=== PATIENT | male | born 1990 | race Caucasian/White ===

== ENCOUNTER 2018-05-29 20:32 | Emergency (ER) | payer OTHER ==
[2018-05-29 20:52] VITALS: BP 127/84; PULSE 74; RESP 18; TEMP 98.2
--- NOTE | 2018-05-29 21:56 | ED ---
General Adult HPI - General Chief complaint: Skin/Abscess/Foreign Body Stated complaint: FB in finger Time Seen by Provider: 05/29/18 20:54 Source: patient, RN notes reviewed Mode of arrival: ambulatory Limitations: no limitations - History of Present Illness Initial comments: 27-year-old male presents to the emergency department for a chief complaint of foreign body in right index finger. Patient states he was holding a carbon fiber sadie today when a piece went into his finger about 7 hours ago. Patient states he tried to go to urgent care but they were not successful in removing the splinter. Patient denies any spreading or streaking redness. Patient denies any fevers or chills. Patient did not sustain any other injuries.Patient has no other complaints at this time including shortness of breath, chest pain, abdominal pain, nausea or vomiting, headache, or visual changes. - Related Data Home Medications Medication Instructions Recorded Confirmed Naproxen 250 mg PO Q6H PRN 05/29/18 05/29/18 Allergies Allergy/AdvReac Type Severity Reaction Status Date / Time codeine AdvReac Nausea & Verified 05/29/18 21:53 Vomiting Review of Systems ROS Statement: Those systems with pertinent positive or pertinent negative responses have been documented in the HPI. ROS Other: All systems not noted in ROS Statement are negative. Past Medical History Past Medical History: No Reported History History of Any Multi-Drug Resistant Organisms: None Reported Past Surgical History: Appendectomy, Orthopedic Surgery Additional Past Surgical History / Comment(s): shoulder Past Psychological History: No Psychological Hx Reported Smoking Status: Never smoker Past Alcohol Use History: Occasional Past Drug Use History: None Reported General Exam Limitations: no limitations General appearance: alert, in no apparent distress Head exam: Present: atraumatic, normocephalic, normal inspection Eye exam: Present: normal appearance. Absent: scleral icterus, conjunctival injection ENT exam: Present: normal exam, mucous membranes moist Neck exam: Present: normal inspection, full ROM. Absent: tenderness, meningismus, lymphadenopathy Respiratory exam: Present: normal lung sounds bilaterally. Absent: respiratory distress, wheezes, rales, rhonchi, stridor Cardiovascular Exam: Present: regular rate, normal rhythm, normal heart sounds. Absent: systolic murmur, diastolic murmur, rubs, gallop, clicks Extremities exam: Present: full ROM (Full range of motion of the right index finger.), tenderness (Tenderness over the foreign body.), normal capillary refill (cap refill <2 seconds.), other (5 mm linear black FB in palmar proximal phalanx. No spreading or streaking redness. No signs of infection.) Neurological exam: Present: alert, oriented X3, CN II-XII intact Psychiatric exam: Present: normal affect, normal mood Skin exam: Present: warm, dry, intact, normal color. Absent: rash Course Vital Signs 05/29/18 20:47 Temperature 98.2 F Pulse Rate 74 Respiratory 18 Rate Blood Pressure 127/84 O2 Sat by Pulse 100 Oximetry Medical Decision Making - Medical Decision Making 27-year-old male presents to the emergency department for a chief complaint of carbon fiber foreign body in the proximal phalanx right index finger 7 hours. Patient did attempt to have this removed at urgent care which was a mucosal. Patient refuses x-ray as he states it will not show up on x-ray. Area was cleaned with alcohol. It was numbed with lidocaine. It was then removed with an 18-gauge needle without any complications or difficulty. Antibiotic ointment was applied and it was bandaged. He will watch for signs of infection and follow up with primary care in 1-2 days. Tetanus is up-to-date as of 2 years ago. Disposition Clinical Impression: Foreign body (FB) in soft tissue Disposition: HOME SELF-CARE Condition: Good Instructions: Soft Tissue Foreign Body (ED) Additional Instructions: Please monitor for spreading redness or streaking redness of the finger. Please keep the area clean and dry. Return to the emergency department if you notice any worsening symptoms or signs of infection. Otherwise follow-up with primary care in 1-2 days. Is patient prescribed a controlled substance at d/c from ED?: No Referrals: Román Sainz MD [Primary Care Provider] - 1-2 days Time of Disposition: 21:57
== END 2018-05-29 22:08 | disposition home or self-care (01) ==
LOC: EC 20:32
DX: S60.450A Superficial foreign body of right index finger, initial encounter (principal); Z88.5 Allergy status to narcotic agent; W45.8XXA Other foreign body or object entering through skin, initial encounter
CPT/HCPCS: 10120; 99283

== ENCOUNTER 2019-05-23 11:14 | Emergency (ER) | payer OTHER ==
[2019-05-23 11:21] VITALS: RESP 18
[2019-05-23] MEDS ORDERED: KETOROLAC 30 MG/ML 1 ML VIAL IVP STA (11:55)
[2019-05-23] MEDS ORDERED: SODIUM CHLORIDE 0.9% 1,000 ML IV STA (11:55)
--- NOTE | 2019-05-23 11:58 | ED ---
General Adult HPI - General Chief complaint: Back Pain/Injury Stated complaint: Back Pain Time Seen by Provider: 05/23/19 11:29 Source: patient, RN notes reviewed Mode of arrival: ambulatory Limitations: no limitations - History of Present Illness Initial comments: 28-year-old male without any significant past medical history presents to the emergency department for a chief complaint of left flank pain. States this has been ongoing for about 3 days. States it is now radiating into his groin. Denies any testicular pain. Denies any abdominal pain. Patient does admit to a small amount of decreased urinary output but states he is still urinating. Denies dysuria. Denies fevers or chills. Denies nausea vomiting diarrhea.Patient has no other complaints at this time including shortness of breath, chest pain, abdominal pain, nausea or vomiting, headache, or visual changes. - Related Data Home Medications Medication Instructions Recorded Confirmed Naproxen 250 mg PO Q6H PRN 05/29/18 05/29/18 Previous Rx's Medication Instructions Recorded Ketorolac [Toradol] 10 mg PO TID #12 tab 05/23/19 Allergies Allergy/AdvReac Type Severity Reaction Status Date / Time codeine AdvReac Nausea & Verified 05/23/19 11:17 Vomiting Review of Systems ROS Statement: Those systems with pertinent positive or pertinent negative responses have been documented in the HPI. ROS Other: All systems not noted in ROS Statement are negative. Past Medical History Past Medical History: No Reported History History of Any Multi-Drug Resistant Organisms: None Reported Past Surgical History: Appendectomy, Hernia Repair, Orthopedic Surgery Additional Past Surgical History / Comment(s): shoulder Past Psychological History: No Psychological Hx Reported Smoking Status: Never smoker Past Alcohol Use History: Occasional Past Drug Use History: None Reported General Exam Limitations: no limitations General appearance: alert, in no apparent distress Head exam: Present: atraumatic, normocephalic, normal inspection Eye exam: Present: normal appearance, PERRL, EOMI. Absent: scleral icterus, conjunctival injection, periorbital swelling ENT exam: Present: normal exam, mucous membranes moist Neck exam: Present: normal inspection, full ROM. Absent: tenderness, meningismus, lymphadenopathy Respiratory exam: Present: normal lung sounds bilaterally. Absent: respiratory distress, wheezes, rales, rhonchi, stridor Cardiovascular Exam: Present: regular rate, normal rhythm, normal heart sounds. Absent: systolic murmur, diastolic murmur, rubs, gallop, clicks GI/Abdominal exam: Present: soft, normal bowel sounds. Absent: distended, te nderness, guarding, rebound, rigid Back exam: Absent: CVA tenderness (R), CVA tenderness (L) Neurological exam: Present: alert Psychiatric exam: Present: normal affect, normal mood Course Vital Signs 05/23/19 11:17 Temperature 97.4 F L Pulse Rate 85 Respiratory 18 Rate Blood Pressure 153/92 O2 Sat by Pulse 100 Oximetry Medical Decision Making - Medical Decision Making 28-year-old male without any significant past medical history presents for a chief complaint of left flank pain. This is an ongoing for about 3 days. Reading into his groin but denies any testicular or abdominal pain. Denies dysuria or fevers or chills. States urine stream is somewhat shorter than normal. It is a stable presentation. Mild hypertension. Patient will follow up for this. On exam no abdominal tenderness. No CVA tenderness. CBC and CMP are unremarkable. Urine is negative. CT abdomen and pelvis without contrast shows possible bladder wall thickening that could represent chronic hypertrophy or cystitis however urinalysis negative. There is also mild prostate gland enlargement of 4.5 cm. Patient will follow up with urology for this, referral given. There are also findings consistent with mesenteric adenitis to include nonenlarged and borderline enlarged mesenteric lymph nodes. This could be the c ause of patient's left flank pain radiating to the groin. There is also a small 9 mm cystic stretcher in the inferior right femoral head. Patient does not have pain in this area. Patient will follow up with primary care for this. At this time patient was given Toradol feeling much better. He will be discharged home with Toradol. He will return if he has any worsening symptoms. - Lab Data Result diagrams: 05/23/19 12:05 05/23/19 12:05 Lab Results 05/23/19 05/23/19 05/23/19 Range/Units 12:05 12:05 12:05 WBC 6.0 (3.8-10.6) k/uL RBC 5.30 (4.30-5.90) m/uL Hgb 15.5 (13.0-17.5) gm/dL Hct 45.6 (39.0-53.0) % MCV 86.0 (80.0-100.0) fL MCH 29.3 (25.0-35.0) pg MCHC 34.0 (31.0-37.0) g/dL RDW 14.7 (11.5-15.5) % Plt Count 315 (150-450) k/uL Neutrophils % 68 % Lymphocytes % 22 % Monocytes % 6 % Eosinophils % 2 % Basophils % 1 % Neutrophils # 4.1 (1.3-7.7) k/uL Lymphocytes # 1.3 (1.0-4.8) k/uL Monocytes # 0.4 (0-1.0) k/uL Eosinophils # 0.1 (0-0.7) k/uL Basophils # 0.0 (0-0.2) k/uL Sodium 141 (137-145) mmol/L Potassium 4.3 (3.5-5.1) mmol/L Chloride 103 (98-107) mmol/L Carbon Dioxide 29 (22-30) mmol/L Anion Gap 9 mmol/L BUN 16 (9-20) mg/dL Creatinine 0.88 (0.66-1.25) mg/dL Est GFR (CKD-EPI)AfAm >90 (>60 ml/min/1.73 sqM) Est GFR (CKD-EPI)NonAf >90 (>60 ml/min/1.73 sqM) Glucose 91 (74-99) mg/dL Calcium 9.7 (8.4-10.2) mg/dL Total Bilirubin 0.6 (0.2-1.3) mg/dL AST 25 (17-59) U/L ALT 24 (21-72) U/L Alkaline Phosphatase 55 (38-126) U/L Total Protein 8.0 (6.3-8.2) g/dL Albumin 4.8 (3.5-5.0) g/dL Amylase 74 (30-110) U/L Lipase 161 (23-300) U/L Urine Color Yellow Urine Appearance Clear (Clear) Urine pH 6.5 (5.0-8.0) Ur Specific [place] 1.018 (1.001-1.035) Urine Protein Negative (Negative) Urine Glucose (UA) Negative (Negative) Urine Ketones Negative (Negative) Urine Blood Negative (Negative) Urine Nitrite Negative (Negative) Urine Bilirubin Negative (Negative) Urine Urobilinogen <2.0 (<2.0) mg/dL Ur Leukocyte Esterase Negative (Negative) Disposition Clinical Impression: Flank pain, Bone cyst of femur, Hypertrophy of bladder Disposition: HOME SELF-CARE Condition: Good Instructions (If sedation given, give patient instructions): Acute Low Back Pain (ED) Additional Instructions: Please take Toradol as directed for pain. Please follow-up with urology for bladder wall thickening as well as enlarged prostate. Please follow-up with primary care regarding this flank pain and CT findings. If pain is worsening instead of improving return to the emergency department. Return if you've any other worsening symptoms. Prescriptions: Ketorolac [Toradol] 10 mg PO TID #12 tab Is patient prescribed a controlled substance at d/c from ED?: No Referrals: Román Sainz MD [Primary Care Provider] - 1-2 days Billy Allan MD [STAFF PHYSICIAN] - 1-2 days Time of Disposition: 13:39
[2019-05-23 12:23] LABS: Appearance,Urine Clear (Clear); Basophils % (A) 1 %; Bilirubin,Urine Negative (Negative); Blood,Urine Negative (Negative); Color,Urine Yellow; Eosinophils # (A) 0.1 k/uL (0-0.7); Eosinophils % (A) 2 %; Glucose,Urine (UA) Negative (Negative); HCT 45.6 % (39.0-53.0); HGB 15.5 gm/dL (13.0-17.5); Ketones,Urine Negative (Negative); Leukocyte Esterase,Urine Negative (Negative); Lymphocytes # (A) 1.3 k/uL (1.0-4.8); Lymphocytes % (A) 22 %; MCH 29.3 pg (25.0-35.0); Mean Platelet Volume 6.2; Monocytes # (A) 0.4 k/uL (0-1.0); Monocytes % (A) 6 %; Neutrophils # (A) 4.1 k/uL (1.3-7.7); Neutrophils % (A) 68 %; Nitrite,Urine Negative (Negative); PH, Urine 6.5 (5.0-8.0); Platelet Count 315 k/uL (150-450); Protein,Urine Negative (Negative); RDW 14.7 % (11.5-15.5); Specific Gravity,Urine 1.018 (1.001-1.035); Urobilinogen,Urine <2.0 mg/dL (<2.0)
[2019-05-23 12:41] LABS: ALT 24 U/L (21-72); AST 25 U/L (17-59); African American GFR (CKD) >90 (>60 ml/min/1.73 sqM); Albumin 4.8 g/dL (3.5-5.0); Alkaline Phosphatase 55 U/L (38-126); Amylase 74 U/L (30-110); Anion Gap 9 mmol/L; Blood Urea Nitrogen 16 mg/dL (9-20); Calcium 9.7 mg/dL (8.4-10.2); Carbon Dioxide 29 mmol/L (22-30); Chloride 103 mmol/L (98-107); Glucose 91 mg/dL (74-99); Potassium 4.3 mmol/L (3.5-5.1); Sodium 141 mmol/L (137-145); Total Bilirubin 0.6 mg/dL (0.2-1.3)
--- NOTE | 2019-05-23 13:06 | CT ---
EXAMINATION TYPE: CT abdomen pelvis wo con DATE OF EXAM: 05/23/2019 COMPARISON: None HISTORY: 28-year-old male with abdominal pain CT DLP: 487.8 mGycm. Automated exposure control for dose reduction was used. TECHNIQUE: Contiguous axial scanning of the abdomen and pelvis without IV contrast. Coronal and sagit patti reconstructions performed. FINDINGS: Heart normal size without pericardial effusion. Lung bases clear without pleural effusion. Noncontrast appearance of the liver, gallbladder, adrenal glands, and spleen show no gross abnormalit y. Some concentrated renal salts noted in the region of the medullary pyramids, possible punctate 1 mm c alcification in the right midpole. Tiny calcified granulomas in the spleen. No dilated small bowel, free fluid, or free air. Scattered nonenlarged borderline sized mesenteric lymph nodes, greatest within the right lower quadra nt measuring up to 8 mm. Surgical material right lower quadrant relating to prior appendectomy. Mild overall stool burden without perisplenic inflammatory change. Mild circumferential bladder wall thickening. Prostate gland measures 4.5 cm wide. Bones: There is a small cystic area within the inferior aspect of the right femoral head with interna l calcification uncertain clinical significance. No osseous destructive process. IMPRESSION: 1. Possible bladder wall thickening could represent chronic bladder wall hypertrophy or cystitis. Cl inically correlate. 2. Prostate gland mildly enlarged for patient's age of 4.5 cm wide. 3. Numerous scattered nonenlarged and borderline enlarged mesenteric lymph nodes, greatest in the ri ght lower quadrant measuring up to 8 mm. Findings are nonspecific but may be seen with mesenteric minnie nitis. Patient is status post appendectomy. 4. Small 9 mm cystic structure inferior right femoral head of uncertain clinical significance and e tiology in the absence of pain here. If there is focal pain, osteoid osteoma would be a differential consideration.
[2019-05-23 14:07] VITALS: BP 134/80; PULSE 78; TEMP 97.8
== END 2019-05-23 14:04 | disposition home or self-care (01) ==
LOC: EC 11:14
DX: N32.89 Other specified disorders of bladder (principal); M85.651 Other cyst of bone, right thigh; R10.32 Left lower quadrant pain; N40.1 Benign prostatic hyperplasia with lower urinary tract symptoms; R39.12 Poor urinary stream; I10 Essential (primary) hypertension; R59.0 Localized enlarged lymph nodes; Z88.5 Allergy status to narcotic agent; Z90.49 Acquired absence of other specified parts of digestive tract
CPT/HCPCS: 36415; 80053; 82150; 83690; 85025; 81003; 74176; 99284; 96374; 96361; J1885

== ENCOUNTER → 2021-01-27 | Outpatient (CLI) | payer MEDICAID ==
--- NOTE | 2021-01-27 08:43 | US ---
EXAMINATION TYPE: US scrotum with doppler. Grayscale and color Doppler Duplex imaging performed of t he scrotum. DATE OF EXAM: 01/27/2021 COMPARISON: NONE CLINICAL HISTORY: Evaluate nodule. palpable on th left EXAM MEASUREMENTS: TESTICLES: Right Testicle: 5.2 x 3.3 x 2.5 cm Left Testicle: 5.2 x 3.6 x 2.5 cm EPIDIDYMIS HEAD: Right Epididymis: 1.1 cm, cyst seen 0.7 x 0.4cm Left Epididymis: 1.2 cm, cyst seen with internal debris 0.8 x 0.9 x 0.7cm - site of palp Doppler performed to assess for testicular vascularity; good bilateral color flow and waveforms are s een. Presence of hydroceles: mild seen laterally with internal debris Presence of varicoceles: no IMPRESSION: Small to tiny epididymal cysts including at the site of palpable abnormality left scrotum . No concerning focal intratesticular mass.
== END | disposition home or self-care (01) ==
LOC: RADUSWWP 07:11
PROVIDERS: ATTEND Emergency Medicine
DX: N43.3 Hydrocele, unspecified (principal)
CPT/HCPCS: 76870; 93975

== ENCOUNTER → 2021-09-19 | Outpatient (CLI) | payer MEDICAID ==
--- NOTE | 2021-09-19 14:25 | CT ---
EXAMINATION TYPE: CT soft tissue neck w con DATE OF EXAM: 09/19/2021 COMPARISON: None HISTORY: Left sided neck mass/lump. CT DLP: 680 mGycm CONTRAST: CT scan of the neck is performed with IV Contrast, patient injected with 100ml mL of Isovue 300. Contrast enhanced CT of the neck was performed from the skull base through the lung apices. Marker is placed at the site of clinical concern left neck which correlates to the sternocleidomastoi d musculature. No evidence for underlying nodule or mass. AIRWAY: The supraglottic, glottic, and subglottic portions of the airway appear patent and free of mass. SALIVARY GLANDS: The submandibular and parotid glands are free of mass or inflammatory process. THYROID GLAND: No nodules or masses seen. LYMPH NODES: No adenopathy seen greater than 1cm. LUNG APICES: No nodule or mass is seen. OTHER: Vascular structures are patent. No significant degenerative change of the cervical spine. N o abscess seen. IMPRESSION: Marker is placed at the site of clinical concern left neck which correlates to the sternocleidomastoi d musculature. No evidence for underlying nodule or mass. No adenopathy.
== END | disposition home or self-care (01) ==
LOC: RADCTMAIN 13:56
PROVIDERS: ATTEND Otolaryngology
DX: R59.0 Localized enlarged lymph nodes (principal); R09.89 Other specified symptoms and signs involving the circulatory and respiratory systems
CPT/HCPCS: 70491; Q9967

== ENCOUNTER → 2021-12-05 | Outpatient (CLI) | payer MEDICAID ==
[2021-12-05 15:23] LABS: LDL Cholesterol,Calculated 108.2 mg/dL (0.0-131.0)
== END | disposition home or self-care (01) ==
LOC: LABWHC1 08:01
PROVIDERS: ATTEND Nurse Practitioner Adult Health
DX: E04.1 Nontoxic single thyroid nodule (principal); E78.5 Hyperlipidemia, unspecified
CPT/HCPCS: 36415; 80061; 84439; 84443; 86376

== ENCOUNTER → 2021-12-05 | Outpatient (CLI) | payer MEDICAID ==
--- NOTE | 2021-12-05 09:57 | US ---
EXAMINATION TYPE: US thyroid st tissue head/neck DATE OF EXAM: 12/05/2021 COMPARISON: None CLINICAL HISTORY: 31-year-old male E04.1 THYROID NODULE. Suspected left thyroid nodule. TECHNIQUE: Multiple sonographic images of the thyroid gland are obtained. FINDINGS: GLAND SIZE: Right Lobe: 6.1 x 1.8 x 2.1 cm Overall Parenchyma: homogenous Left Lobe: 5.5 x 1.5 x 2.0 cm Overall Parenchyma: homogeneous Isthmus Thickness: 0.4 cm NODULES RIGHT: # of nodules measured on right: 0 LEFT: # of nodules measured on left: 0 ISTHMUS: # of nodules measured in the isthmus: 0 [employer] notes: Bilateral neck scanned, no evidence of lymphadenopathy. IMPRESSION: Mild thyromegaly may reflect goiter. Clinically correlate. No discrete nodules.
== END | disposition home or self-care (01) ==
LOC: RADUSWWP 07:46
PROVIDERS: ATTEND Otolaryngology
DX: E04.1 Nontoxic single thyroid nodule (principal)
CPT/HCPCS: 76536

== ENCOUNTER 2022-01-02 11:16 | Emergency (ER) | payer MEDICAID ==
[2022-01-02 11:31] VITALS: RESP 18
[2022-01-02] MEDS ORDERED: SODIUM CHLORIDE 0.9% 1,000 ML IV STA (11:52)
[2022-01-02] MEDS ORDERED: IBUPROFEN 600 MG TAB PO STA (11:52)
[2022-01-02] MEDS ORDERED: SODIUM CHLORIDE 0.9% 500 ML 500 ML IV STA (11:52)
[2022-01-02 12:01] LABS: Basophils % (A) 0 %; Eosinophils # (A) 0.1 k/uL (0-0.7); Eosinophils % (A) 1 %; HCT 47.2 % (39.0-53.0); Lymphocytes # (A) 1.1 k/uL (1.0-4.8); Lymphocytes % (A) 15 %; MCH 29.1 pg (25.0-35.0); MCHC 33.8 g/dL (31.0-37.0); MCV 86.1 fL (80.0-100.0); Mean Platelet Volume 6.3; Monocytes # (A) 0.4 k/uL (0-1.0); Monocytes % (A) 6 %; Neutrophils # (A) 5.1 k/uL (1.3-7.7); Neutrophils % (A) 73 %; Platelet Count 373 k/uL (150-450); RBC 5.48 m/uL (4.30-5.90); RDW 12.3 % (11.5-15.5); WBC 7.1 k/uL (3.8-10.6)
[2022-01-02 12:19] LABS: ALT 29 U/L (4-49); AST 31 U/L (17-59); African American GFR (CKD) >90 (>60 ml/min/1.73 sqM); Albumin 4.8 g/dL (3.5-5.0); Alkaline Phosphatase 57 U/L (38-126); Anion Gap 10 mmol/L; Blood Urea Nitrogen 13 mg/dL (9-20); Calcium 9.3 mg/dL (8.4-10.2); Carbon Dioxide 28 mmol/L (22-30); Chloride 100 mmol/L (98-107); Glucose 94 mg/dL (74-99); Non-African American GFR(CKD) >90 (>60 ml/min/1.73 sqM); Potassium 4.4 mmol/L (3.5-5.1); Sodium 138 mmol/L (137-145); Total Bilirubin 0.9 mg/dL (0.2-1.3); Total Protein 8.2 g/dL (6.3-8.2)
--- NOTE | 2022-01-02 12:28 | XR ---
EXAMINATION TYPE: XR chest 2V DATE OF EXAM: 01/02/2022 COMPARISON: None HISTORY: 31-year-old male coughing fever for 10 days TECHNIQUE: PA and lateral views FINDINGS: Heart normal size. Aorta and pulmonary vasculature within normal limits. Some strandy atelectasis at the left base. No consolidation or pleural effusion seen. IMPRESSION: No focal infiltrate identified.
--- NOTE | 2022-01-02 13:02 | ED ---
Nausea/Vomiting/Diarrhea HPI - General Chief complaint: Nausea/Vomiting/Diarrhea Stated complaint: Nausea, Diarrhea, Fever, Dehydration Time Seen by Provider: 01/02/22 11:38 Source: patient, family, RN notes reviewed, old records reviewed Mode of arrival: ambulatory Limitations: no limitations - History of Present Illness Initial comments: Patient is a 29-year-old male with history of hyperlipidemia, presenting to the emergency Department with complaints of a intermittent fever and sore throat over the past 10 days. He's had a mild cough as well. Patient had an episode of vomiting a few days ago. Over the past 3 days he's had frequent bouts of diarrhea. Patient states he is starting to feel really dehydrated. His appetite has been low, he does not feel like stable drink enough water. Patient has not been evaluated for his fever cough prior to his arrival today. He denies any abdominal pains, no chest pains. He does feel some mild short of breath. Patient is vaccinated for Covid. Patient's states that she had a small respiratory virus about 2 weeks ago. She has since improved. Patient denies any dizziness. He has no further complaints. - Related Data Home Medications Medication Instructions Recorded Confirmed Cholecalciferol (Vitamin D3) 75 mcg PO DAILY 01/02/22 01/02/22 [Vitamin D3 (3000 Iu)] Loperamide HCl [Imodium A-D] 2 - 4 mg PO QID PRN 01/02/22 01/02/22 Rosuvastatin Calcium 10 mg PO W/SUPPER 01/02/22 01/02/22 Allergies Allergy/AdvReac Type Severity Reaction Status Date / Time codeine AdvReac Nausea & Verified 01/02/22 12:46 Vomiting Review of Systems ROS Statement: Those systems with pertinent positive or pertinent negative responses have been documented in the HPI. ROS Other: All systems not noted in ROS Statement are negative. Past Medical History Past Medical History: No Reported History History of Any Multi-Drug Resistant Organisms: None Reported Past Surgical History: Appendectomy, Hernia Repair, Orthopedic Surgery Additional Past Surgical History / Comment(s): shoulder Past Psychological History: No Psychological Hx Reported Smoking Status: Never smoker Past Alcohol Use History: Occasional Past Drug Use History: None Reported General Exam - General Exam Comments Initial Comments: GENERAL: Patient is well-developed and well-nourished. Patient is nontoxic and in no acute distress. HEAD: Atraumatic, normocephalic. EYES: Pupils equal round and reactive to light, extraocular movements intact, sclera anicteric, conjunctiva are normal. Eyelids were unremarkable. ENT: TMs normal, nares patent, oropharynx clear without exudates. Moist mucous membranes. NECK: Normal range of motion, supple without lymphadenopathy or JVD. LUNGS: Unlabored respirations. Breath sounds clear to auscultation bilaterally and equal. No wheezes rales or rhonchi. HEART: Regular rate and rhythm without murmurs, rubs or gallops. ABDOMEN: Soft, nontender, normoactive bowel sounds. No guarding, no rebound. No masses appreciated. MUSCULOSKELETAL: Normal extremities with adequate strength and normal range of motion, no pitting or edema. No clubbing or cyanosis. NEUROLOGICAL: Patient is alert and oriented x 3. Normal speech, normal gait. PSYCH: Normal mood, normal affect. SKIN: Warm, Dry, normal turgor, no rashes or lesions noted. Course Vital Signs 01/02/22 11:26 Temperature 100.1 F H Pulse Rate 98 Respiratory 18 Rate Blood Pressure 129/83 O2 Sat by Pulse 99 Oximetry Medical Decision Making - Medical Decision Making Patient is a 31-year-old male here with intermittent fever, cough and viral-type symptoms for the past 10 days. He had one day of vomiting, he has had diarrhea for the last 3 days. Did arrive mildly febrile at 100, rest of vitals normal. His exam was unremarkable. Chest x-ray shows no focal infiltrate. Blood work is unremarkable, covid and influenza are negative. Urine shows no evidence of bacteria, 1+ ketones. Patient received a liter and half of fluids, Motrin for his discomfort. He is resting comfortably, no complaints. Studies were discussed with the patient. This is most likely viral in nature. Recommend continuing with Tylenol and ibuprofen as needed trial of Imodium for the diarrhea, increase fluids. They can follow up with primary care as needed. Return parameters were discussed. Patient agreeable. Case discussed Dr. Gruber. - Lab Data Result diagrams: 01/02/22 11:54 01/02/22 11:54 Lab Results 01/02/22 01/02/22 01/02/22 Range/Units 11:54 11:54 11:54 WBC 7.1 (3.8-10.6) k/uL RBC 5.48 (4.30-5.90) m/uL Hgb 16.0 (13.0-17.5) gm/dL Hct 47.2 (39.0-53.0) % MCV 86.1 (80.0-100.0) fL MCH 29.1 (25.0-35.0) pg MCHC 33.8 (31.0-37.0) g/dL RDW 12.3 (11.5-15.5) % Plt Count 373 (150-450) k/uL MPV 6.3 Neutrophils % 73 % Lymphocytes % 15 % Monocytes % 6 % Eosinophils % 1 % Basophils % 0 % Neutrophils # 5.1 (1.3-7.7) k/uL Lymphocytes # 1.1 (1.0-4.8) k/uL Monocytes # 0.4 (0-1.0) k/uL Eosinophils # 0.1 (0-0.7) k/uL Basophils # 0.0 (0-0.2) k/uL Sodium 138 (137-145) mmol/L Potassium 4.4 (3.5-5.1) mmol/L Chloride 100 (98-107) mmol/L Carbon Dioxide 28 (22-30) mmol/L Anion Gap 10 mmol/L BUN 13 (9-20) mg/dL Creatinine 1.00 (0.66-1.25) mg/dL Est GFR (CKD-EPI)AfAm >90 (>60 ml/min/1.73 sqM) Est GFR (CKD-EPI)NonAf >90 (>60 ml/min/1.73 sqM) Glucose 94 (74-99) mg/dL Calcium 9.3 (8.4-10.2) mg/dL Total Bilirubin 0.9 (0.2-1.3) mg/dL AST 31 (17-59) U/L ALT 29 (4-49) U/L Alkaline Phosphatase 57 (38-126) U/L Total Protein 8.2 (6.3-8.2) g/dL Albumin 4.8 (3.5-5.0) g/dL Urine Color Urine Appearance (Clear) Urine pH (5.0-8.0) Ur Specific Kendall (1.001-1.035) Urine Protein (Negative) Urine Glucose (UA) (Negative) Urine Ketones (Negative) Urine Blood (Negative) Urine Nitrite (Negative) Urine Bilirubin (Negative) Urine Urobilinogen (<2.0) mg/dL Ur Leukocyte Esterase (Negative) Coronavirus (PCR) Not Detected (Not Detectd) Influenza Type A RNA (Not Detectd) Influenza Type B (PCR) (Not Detectd) 01/02/22 01/02/22 Range/Units 11:56 12:50 WBC (3.8-10.6) k/uL RBC (4.30-5.90) m/uL Hgb (13.0-17.5) gm/dL Hct (39.0-53.0) % MCV (80.0-100.0) fL MCH (25.0-35.0) pg MCHC (31.0-37.0) g/dL RDW (11.5-15.5) % Plt Count (150-450) k/uL MPV Neutrophils % % Lymphocytes % % Monocytes % % Eosinophils % % Basophils % % Neutrophils # (1.3-7.7) k/uL Lymphocytes # (1.0-4.8) k/uL Monocytes # (0-1.0) k/uL Eosinophils # (0-0.7) k/uL Basophils # (0-0.2) k/uL Sodium (137-145) mmol/L Potassium (3.5-5.1) mmol/L Chloride (98-107) mmol/L Carbon Dioxide (22-30) mmol/L Anion Gap mmol/L BUN (9-20) mg/dL Creatinine (0.66-1.25) mg/dL Est GFR (CKD-EPI)AfAm (>60 ml/min/1.73 sqM) Est GFR (CKD-EPI)NonAf (>60 ml/min/1.73 sqM) Glucose (74-99) mg/dL Calcium (8.4-10.2) mg/dL Total Bilirubin (0.2-1.3) mg/dL AST (17-59) U/L ALT (4-49) U/L Alkaline Phosphatase (38-126) U/L Total Protein (6.3-8.2) g/dL Albumin (3.5-5.0) g/dL Urine Color Yellow Urine Appearance Clear (Clear) Urine pH 6.0 (5.0-8.0) Ur Specific Kendall 1.024 (1.001-1.035) Urine Protein Trace H (Negative) Urine Glucose (UA) Negative (Negative) Urine Ketones 1+ H (Negative) Urine Blood Negative (Negative) Urine Nitrite Negative (Negative) Urine Bilirubin Negative (Negative) Urine Urobilinogen 2.0 (<2.0) mg/dL Ur Leukocyte Esterase Negative (Negative) Coronavirus (PCR) (Not Detectd) Influenza Type A RNA Not Detected (Not Detectd) Influenza Type B (PCR) Not Detected (Not Detectd) Disposition Clinical Impression: Dehydration, Gastroenteritis Disposition: HOME SELF-CARE Condition: Stable Instructions (If sedation given, give patient instructions): Acute Diarrhea (ED) Additional Instructions: Please return to the Emergency Department if symptoms worsen or any other concerns. Continue to increase your fluids, increase diet as tolerated. Trial of Imodium for diarrhea. Follow-up with your primary care. Is patient prescribed a controlled substance at d/c from ED?: No Referrals: Román Sainz MD [Primary Care Provider] - 1-2 days Time of Disposition: 13:41
[2022-01-02 13:22] LABS: Appearance,Urine Clear (Clear); Bilirubin,Urine Negative (Negative); Blood,Urine Negative (Negative); Color,Urine Yellow; Glucose,Urine (UA) Negative (Negative); Ketones,Urine 1+ (Negative); Leukocyte Esterase,Urine Negative (Negative); Nitrite,Urine Negative (Negative); Protein,Urine Trace (Negative); Specific Gravity,Urine 1.024 (1.001-1.035)
[2022-01-02 13:57] VITALS: BP 124/81; PULSE 84; TEMP 98.8
== END 2022-01-02 13:57 | disposition home or self-care (01) ==
LOC: EC 11:16
DX: K52.9 Noninfective gastroenteritis and colitis, unspecified (principal); E86.0 Dehydration; Z20.822 Contact with and (suspected) exposure to COVID-19; Z88.5 Allergy status to narcotic agent
CPT/HCPCS: 36415; 71046; 80053; 81003; 85025; 87502; 87635; 96360; 96361; 99284

== ENCOUNTER 2024-06-28 15:58 | Emergency (ER) | payer BC, MEDICAID ==
--- NOTE | 2024-06-28 16:05 | ED ---
Lower Extremity Injury HPI - General Chief Complaint: Extremity Injury, Lower Stated Complaint: L Leg Pain Time Seen by Provider: 06/28/24 16:05 Source: patient, RN notes reviewed Mode of arrival: ambulatory Limitations: no limitations - History of Present Illness Initial Comments: This is a 33-year-old male with no significant past medical history presents emergency department chief complaint of bruising and pain to his left posterior thigh. Patient denies any trauma or injury to the leg. States that this is painful. He is concerned that there may be a blood clot in his leg. He denies shortness of breath, difficulty breathing, heart palpitations, chest pain, recent prolonged travel, recent surgeries, history of DVT, history of blood clotting disorders. No other acute complaints at this time. - Related Data Home Medications Medication Instructions Recorded Confirmed Cholecalciferol (Vitamin D3) 75 mcg PO DAILY 01/02/22 01/02/22 [Vitamin D3 (3000 Iu)] Loperamide HCl [Imodium A-D] 2 - 4 mg PO QID PRN 01/02/22 01/02/22 Rosuvastatin Calcium 10 mg PO W/SUPPER 01/02/22 01/02/22 Allergies Allergy/AdvReac Type Severity Reaction Status Date / Time codeine AdvReac Nausea & Verified 06/28/24 16:02 Vomiting Review of Systems ROS Statement: Those systems with pertinent positive or pertinent negative responses have been documented in the HPI. ROS Other: All systems not noted in ROS Statement are negative. Past Medical History Past Medical History: No Reported History History of Any Multi-Drug Resistant Organisms: None Reported Past Surgical History: Appendectomy, Hernia Repair, Orthopedic Surgery Additional Past Surgical History / Comment(s): shoulder Past Psychological History: No Psychological Hx Reported Smoking Status: Never smoker Past Alcohol Use History: Occasional Past Drug Use History: None Reported General Exam Limitations: no limitations General appearance: alert, in no apparent distress Eye exam: Present: normal appearance, PERRL, EOMI. Absent: scleral icterus, conjunctival injection, periorbital swelling ENT exam: Present: normal exam, mucous membranes moist Neck exam: Present: normal inspection. Absent: tenderness, meningismus, lymphadenopathy Respiratory exam: Present: normal lung sounds bilaterally. Absent: respiratory distress, wheezes, rales, rhonchi, stridor Cardiovascular Exam: Present: regular rate, normal rhythm, normal heart sounds. Absent: systolic murmur, diastolic murmur, rubs, gallop, clicks GI/Abdominal exam: Present: soft, normal bowel sounds. Absent: distended, tenderness, guarding, rebound, rigid Left Upper Leg exam: Present: normal inspection, full ROM, tenderness (medial thigh with ecchymosis aprox 2 cm by 2 cm), ecchymosis. Absent: swelling, abrasion, laceration, deformity, crepitus, dislocation Neurovascular tendon exam: Present: no vascular compromise. Absent: pulse deficit Gait: observed and normal Back exam: Present: normal inspection Skin exam: Present: warm, dry, intact, normal color. Absent: rash Course Vital Signs 06/28/24 15:59 Temperature 97.8 F Pulse Rate 82 Respiratory 20 Rate Blood Pressure 127/71 O2 Sat by Pulse 99 Oximetry Medical Decision Making - Medical Decision Making Was pt. sent in by a medical professional or institution (, PA, WALKING DRAGLINE OILER, urgent care, hospital, or [facility]...) When possible be specific @ -No Did you speak to anyone other than the patient for history (EMS, parent, family, police, friend...)? What history was obtained from this source @ -No Did you review nursing and triage notes (agree or disagree)? Why? @ -I reviewed and agree with nursing and triage notes Were old charts reviewed (outside hosp., previous admission, EMS record, old EKG, old radiological studies, urgent care reports/EKG's, [facility] records)? Report findings @ -No old charts were reviewed Differential Diagnosis (chest pain, altered mental status, abdominal pain women, abdominal pain men, vaginal bleeding, weakness, fever, dyspnea, syncope, headache, dizziness, GI bleed, back pain, seizure, CVA, palpatations, mental health, musculoskeletal)? @ -Hematoma, ecchymosis, DVT, superficial thrombophlebitis, this list is not all inclusive EKG interpreted by me (3pts min.). @ -As above X-rays interpreted by me (1pt min.). @ -None done CT interpreted by me (1pt min.). @ -None done U/S interpreted by me (1pt. min.). @ -ReSound of the left lower extremity negative for DVT. What testing was considered but not performed or refused? (CT, X-rays, U/S, labs)? Why? @ -None What meds were considered but not given or refused? Why? @ -None Did you discuss the management of the patient with other professionals (professionals i.e. , PA, WALKING DRAGLINE OILER, lab, RT, psych nurse, psychologist social, auto wash buffer, teacher, armoured corps officer, piano case and bench assembler)? Give summary @ -No Was smoking cessation discussed for >3mins.? @ -No Was critical care preformed (if so, how long)? @ -No Were there social determinants of health that impacted care today? How? (Homelessness, low income, unemployed, alcoholism, drug addiction, transportation, low edu. Level, literacy, decrease access to med. care, penitentiary, rehab)? @ -No Was there de-escalation of care discussed even if they declined (Discuss DNR or withdrawal of care, Hospice)? DNR status @ -No What co-morbidities impacted this encounter? (DM, HTN, Smoking, COPD, CAD, Cancer, CVA, ARF, Chemo, Hep., AIDS, mental health diagnosis, sleep apnea, morbid obesity)? @ -None Was patient admitted / discharged? Hospital course, mention meds given and route, prescriptions, significant lab abnormalities, going to OR and other pertinent info. @Discharge. 33-year-old male with left thigh pain. On examination patient noted to have area of bruising of the left posterior thigh measuring approximately 2 cm x 2 cm with pain elicited on palpation. Patient is neurovascularly intact. Ultrasound negative for DVT. Patient's symptoms likely secondary to ecchymosis recommend they continue supportive treatment at home rest, ice, elevate. All questions answered at bedside and strict return parameters jeffrey the patient is verbalized understanding. Case discussed with Dr. Alegre Undiagnosed new problem with uncertain prognosis? @ -No Drug Therapy requiring intensive monitoring for toxicity (Heparin, Nitro, Insulin, Cardizem)? @ -No Were any procedures done? @ -No Diagnosis/symptom? @ -Ecchymosis, leg pain Acute, or Chronic, or Acute on Chronic? @ -acute Uncomplicated (without systemic symptoms) or Complicated (systemic symptoms)? @ -Uncomplicated Side effects of treatment? @ -No Exacerbation, Progression, or Severe Exacerbation? @ -No Poses a threat to life or bodily function? How? (Chest pain, USA, MS, pneumonia, PE, COPD, DKA, ARF, appy, cholecystitis, CVA, Diverticulitis, Homicidal, Suicidal, threat to staff... and all critical care pts) @ -No Disposition Clinical Impression: Bruise, Leg pain Disposition: HOME SELF-CARE Condition: Good Instructions (If sedation given, give patient instructions): Contusion in Adults (ED) Additional Instructions: Please return to the Emergency Department if symptoms worsen or any other concerns. Is patient prescribed a controlled substance at d/c from ED?: No Referrals: Román Sainz MD [Primary Care Provider] - 1-2 days Time of Disposition: 17:19
--- NOTE | 2024-06-28 17:08 | US ---
EXAMINATION TYPE: US venous doppler duplex LE LT DATE OF EXAM: 06/28/2024 4:55 PM COMPARISON: NONE CLINICAL INDICATION: Male, 33 years old with history of brusing of thigh, pain; medial dst thigh brui se TECHNIQUE: The lower extremity deep venous system is examined utilizing real time linear array sonog jr with graded compression, color doppler sonography, and spectral doppler. SIDE PERFORMED: Left FINDINGS: VESSELS IMAGED: Common Femoral Vein Deep Femoral Vein Greater Saphenous Vein * Femoral Vein Popliteal Vein Small Saphenous Vein * Proximal Calf Veins (* superficial vessels) Left Leg: Negative for DVT area of concern scanned, no discrete abnormality appreciated Grayscale, color doppler, spectral doppler imaging performed of the deep veins of the lower extremiti es. IMPRESSION: No evidence for deep vein thrombosis. [facility], , 06/28/2024 5:06 PM
[2024-06-28 17:59] VITALS: BP 114/68; PULSE 72; RESP 16; TEMP 98.3
== END 2024-06-28 17:59 | disposition home or self-care (01) ==
LOC: EC 15:58
CPT/HCPCS: 99283